=== PATIENT | female | born 1970 | race Caucasian/White ===

== ENCOUNTER 2019-04-01 13:17 | Outpatient (CLI) | payer OTHER, SELFPAY ==
--- NOTE | ~2019-04-01 | US_ITS ---
EXAMINATION: US thyroid DATE: 04/01/2019 15:09 INDICATION: Thyroid cancer. TECHNIQUE: Multiple ultrasound images of the thyroid were obtained. COMPARISON: Ultrasound 11/26/2018 FINDINGS: The right thyroid lobe is absent. The left thyroid lobe measures 5.0 x 1.8 x 1.8 cm. Left thyroid lo be is diffusely heterogeneous. Vascularity is increased. No discrete nodule. IMPRESSION: 1. Heterogeneous, hypervascular left thyroid lobe, likely chronic lymphocytic (Clay) thyroiditis . Because no discrete nodule was identified, no biopsy was performed. Reviewed, dictated and finalized at location A. ELECTRICIAN IMPRESSION: 1. Heterogeneous, hypervascular left thyroid lobe, likely chronic lymphocytic ( Clay) thyroiditis. Because no discrete nodule was identified, no biopsy wa s performed.
== END 2019-04-01 13:18 | disposition home or self-care (01) ==
LOC: ANHIMG 13:33
PROVIDERS: PCP Family Medicine
DX: C73 Malignant neoplasm of thyroid gland (principal)
CPT/HCPCS: 76536

== ENCOUNTER 2019-10-11 11:50 | Outpatient (CLI) | payer OTHER, SELFPAY ==
--- NOTE | ~2019-10-11 | MMUS_ITS ---
EXAMINATION: MM diagnostic esther BI w kane, US breast BI complete HISTORY: Bilateral mammographic asymmetries reported on 01/04/2019 bilateral digital screening mammog micheal. Probable benign bilateral breast findings including masses and cysts reported on 01/17/2019 bilateral diagnostic mammogram and bilateral complete breast ultrasound TECHNIQUE: 3-D tomosynthesis images of both breasts were performed and synthetic 2-D images were gene rated. CAD analysis was submitted and interpreted. High resolution bilateral complete breast ultrasou nd was performed. COMPARISON: 01/17/2019 bilateral diagnostic digital mammogram and bilateral complete breast ultrasoun d FINDINGS: MAMMOGRAPHIC FINDINGS: No suspicious mass or architectural distortion, malignant calcification, skin thickening or retractio n is evident. ULTRASOUND: Multiple bilateral breast cysts are noted, the largest on the right measuring up to 6 mm, the largest on the left measuring up to 1.2 cm. No suspicious mass or architectural distortion of either breast is evident. IMPRESSION: 1. No mammographic evidence of malignancy 2. Routine mammographic screening is recommended BI-RADS Category 2: Benign finding(s). Reviewed, dictated and finalized at location A. IMPRESSION: 1. No mammographic evidence of malignancy 2. Routine mammographic screening is recommended BI-RADS Category 2: Benign finding(s).
== END 2019-10-11 11:51 | disposition home or self-care (01) ==
LOC: ANHIMG 11:51
PROVIDERS: PCP Family Medicine; Visit Provider Family Medicine
DX: R92.8 Other abnormal and inconclusive findings on diagnostic imaging of breast (principal)
CPT/HCPCS: 76641; 77062; 77066; G0279

== ENCOUNTER 2020-04-02 10:22 | Outpatient (CLI) | payer OTHER, SELFPAY ==
--- NOTE | ~2020-04-02 | US_ITS ---
EXAMINATION: US thyroid DATE: 04/02/2020 11:13 INDICATION: Thyroid cancer. TECHNIQUE: Multiple ultrasound images of the thyroid were obtained. COMPARISON: Ultrasound 04/01/2019, 11/26/18 FINDINGS: The right thyroid lobe is absent. The left thyroid lobe measures 5.2 x 1.9 x 1.7 cm. The left thyroi d lobe is diffusely heterogeneous and hypoechoic. Vascularity is normal. No discrete nodule. IMPRESSION: 1. Chronic heterogeneity of the left thyroid lobe, likely chronic lymphocytic (Clay) thyroiditis . Reviewed, dictated and finalized at location A. WELL PUMPER IMPRESSION: 1. Chronic heterogeneity of the left thyroid lobe, likely chronic lymphocytic ( Clay) thyroiditis.
== END 2020-04-02 10:23 | disposition home or self-care (01) ==
PROVIDERS: PCP Family Medicine
DX: J38.00 Paralysis of vocal cords and larynx, unspecified (principal); R93.89 Abnormal findings on diagnostic imaging of other specified body structures
CPT/HCPCS: 76536

== ENCOUNTER 2020-10-22 15:46 | Outpatient (CLI) | payer OTHER, SELFPAY ==
--- NOTE | ~2020-10-22 | MM_ITS ---
EXAMINATION: MM screening esther BI w kane HISTORY: Screening TECHNIQUE: Craniocaudal and mediolateral oblique 3-D tomosynthesis images were obtained and synthetic 2-D images were generated. CAD analysis was submitted and interpreted. COMPARISON: Comparison to multiple prior studies sequentially, with oldest reviewed study dated 10/2015. BREAST PARENCHYMAL COMPOSITION: The breasts are heterogenously dense, which may obscure small masses FINDINGS: Stable benign-appearing bilateral breast masses. There is no evidence of suspicious mass, c alcification, or architectural distortion to suggest malignancy in either breast. There has been no s uspicious interval change. IMPRESSION: 1. No mammographic evidence of malignancy. 2. Recommend routine screening mammography in one year. BI-RADS Category 2: Benign finding(s). Reviewed, dictated and finalized at location A.
== END 2020-10-22 15:47 | disposition home or self-care (01) ==
LOC: ANHIMG 15:52
PROVIDERS: PCP Family Medicine; Visit Provider Family Medicine
DX: Z12.31 Encounter for screening mammogram for malignant neoplasm of breast (principal)
CPT/HCPCS: 77063; 77067

== ENCOUNTER 2021-11-26 08:16 | Outpatient (CLI) | payer OTHER, SELFPAY ==
--- NOTE | ~2021-11-26 | MM_ITS ---
EXAMINATION: MM screening [facility] BI w kane HISTORY: Screening mammogram TECHNIQUE: Craniocaudal and mediolateral oblique 3-D tomosynthesis images were obtained and synthetic 2-D images were generated. CAD analysis was submitted and interpreted. COMPARISON: 10/22/2020, 10/11/2019, 01/17/2019 BREAST PARENCHYMAL COMPOSITION: The breasts are heterogeneously dense, which may obscure small masses . FINDINGS: There is no suspicious mass, calcification, or architectural distortion to suggest malignan cy in either breast. There has been no suspicious interval change. IMPRESSION: 1. No mammographic evidence of malignancy. 2. Recommend routine screening mammography in one year. BI-RADS Category 1: Negative Reviewed, dictated and finalized at location A.
== END 2021-11-26 08:17 | disposition home or self-care (01) ==
PROVIDERS: PCP Family Medicine; Visit Provider Family Medicine
DX: Z12.31 Encounter for screening mammogram for malignant neoplasm of breast (principal)
CPT/HCPCS: 77063; 77067

== ENCOUNTER 2023-04-03 07:16 | Outpatient (CLI) | payer OTHER, SELFPAY ==
--- NOTE | ~2023-04-03 | MM_ITS ---
EXAMINATION: MM screening est[facility] BI w kane HISTORY: Screening mammogram TECHNIQUE: Craniocaudal and mediolateral oblique 3-D tomosynthesis images were obtained and synthetic 2-D images were generated. CAD analysis was submitted and interpreted. COMPARISON: 11/26/2021, 10/22/2020 bilateral screening mammogram examinations BREAST PARENCHYMAL COMPOSITION: The breasts are heterogeneously dense, which may obscure small masses . FINDINGS: There is no evidence of suspicious mass, calcification, or architectural distortion to sugg est malignancy in either breast. There has been no suspicious interval change. IMPRESSION: 1. No mammographic evidence of malignancy. 2. Recommend routine screening mammography in one year. BI-RADS Category 1: Negative Reviewed, dictated and finalized at location A. LY SUPPORT WORKER
== END 2023-04-03 07:17 | disposition home or self-care (01) ==
LOC: ANHIMG 07:22
PROVIDERS: PCP Family Medicine; Visit Provider Family Medicine
DX: Z12.31 Encounter for screening mammogram for malignant neoplasm of breast (principal)
CPT/HCPCS: 77063; 77067

== ENCOUNTER 2023-10-26 16:19 | Emergency (ER) | payer BC, SELFPAY ==
[2023-10-26] VITALS (10 sets, daily range): BP systolic 112–135; BP diastolic 86–93; PULSE 71–88; RESP 14–18; TEMP 36.3–36.6; O2SAT 96–100
--- NOTE | ~2023-10-26 | CT_ITS ---
EXAMINATION: CT brain wo con DATE: 10/26/2023 18:23 INDICATION: Dizziness TECHNIQUE: Computed tomography (CT) of the head was performed without intravenous contrast. Sagittal and coronal reconstructions were performed. The mA was adjusted according to patient size. Iterative reconstruction technique was employed. The dose-length product was 605.33 mGy-cm. COMPARISON: None FINDINGS: No acute intracranial hemorrhage, acute infarction or abnormal extra axial fluid collection. Ventricl es are normal and symmetric. No mass/mass effect. The orbits, paranasal sinuses and mastoid air cells are normal. IMPRESSION: 1. Normal for age brain. No acute intracranial process. Reviewed, dictated and finalized at location A.
--- NOTE | 2023-10-26 16:27 | ECG_ITS ---
Test Date: 2023-10-26 16:31:39 Measurements Intervals [place] Rate: 81 P: 69 VA: 175 QRS: 3 QRSD: 84 T: 73 QT: 383 QTc: 445 Interpretive Statements SINUS RHYTHM INCOMPLETE RIGHT BUNDLE BRANCH BLOCK DELAYED PRECORDIAL R/S TRANSITION LOW QRS VOLTAGE IN PRECORDIAL LEADS BORDERLINE T WAVE ABNORMALITY- HIGH LATERAL LEADS BASELINE ARTIFACT- I, III, AVR, AVL, AVF, V6 BORDERLINE ECG No previous ECG available for comparison Electronically Signed On 10-26-2023 17:47:53 CDT by Man Michael D.O.
--- NOTE | 2023-10-26 16:27 | ED.DIZZY ---
HPI - Dizziness General Chief Complaint: Dizziness <Alek Yee PA-C - Last Filed: 10/26/23 16:30> Stated Complaint: DIZZY, N/V <Alek Yee PA-C - Last Filed: 10/26/23 16:30> Time Seen by Provider: 10/26/23 16:27 <Alek Yee PA-C - Last Filed: 10/26/23 16:30> Focused HPI: This is a 53-year-old female with history of acquired hypothyroid, pre diabetes who presents to the ED for chief complaint of intermittent dizziness over the past several days. Reports associated nausea and a several episodes of vomiting. She reports that she was trying to read her Eileen in all the words responding. She has a spinning sensation that worsens when moving her head to the right or to the left. She states that the left does feel worse. she does state that the dizziness has periods where he gets better foot then will return with certain movements. This is never happened before. Denies chest pain, shortness of breath, cough, recent illness, fevers, chills, diarrhea or abdominal pain. GENERAL: Well-appearing, well-nourished, and in no acute distress. HEAD: Normocephalic, atraumatic. CHEST: Clear to auscultation. No respiratory distress. HEART: Regular rate and rhythm. NEURO: Alert and oriented x3. Patient screened in triage and initial orders placed. Additional care and disposition to be based upon diagnostic testing and treatment. <Alek Yee PA-C - Last Filed: 10/26/23 16:30> Related Data Home Medications: Home Medications Medication Instructions Recorded Confirmed calcium carbonate (Calcium 600) 600 mg PO DAILY 12/27/18 09/29/22 biotin 10 mg tablet 10 mg PO DAILY 07/05/21 09/29/22 <LOGAN Lima Last Filed: 10/26/23 16:30> Allergies/Adverse Reactions: Allergies Allergy/AdvReac Type Severity Reaction Status Date / Time No Known Allergies Allergy Verified 10/26/23 16:52 <LOGAN Lima Last Filed: 10/26/23 16:30> Review of Systems Review of Systems: CONSTITUTIONAL: Denies fever EYES: Denies visual changes GASTROINTESTINAL: Reports nausea, vomiting MUSCULOSKELETAL: Reports myalgia. NEUROLOGIC: Denies numbness, or weakness. 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, unspecified Prediabetes Prehypertension <Alek Yee PA-C - Last Filed: 10/26/23 16:30> Surgical History Surgical History: Surgical History H/O section (~2001) History of thyroidectomy (~12/2018) History of tubal ligation (~2015) <Alek Yee PA-C - Last Filed: 10/26/23 16:30> Family History Family History: Family History Father Malignant neoplasm of prostate Grandparent Cerebrovascular accident Breast cancer Mother Diabetes mellitus ALS (amyotrophic lateral sclerosis) Grandparent Lung disease <Alek Yee PA-C - Last Filed: 10/26/23 16:30> Social History Social History: Social History Smoking status: Never smoker Tobacco type: cigarettes Smoking end date: 02/23/95 Alcohol intake: current Drinks per week: 4 Substance use: never Substance use type: does not use Lack of Transportation: No Lack of Food: Never True Current Housing: I Have Housing Concerned About Future Housing: No Difficulty Paying Gas/Electric Bills: No Difficulty P
[2023-10-26 16:40] LABS: Basophils Absolute Auto 0.1 K/mm3 (0.0-0.1); Basophils Percent Auto 1.4 % (0.2-1.2); Eosinophils Absolute Auto 0.1 K/mm3 (0-0.3); Eosinophils Percent Auto 1.9 % (0-4.4); Hematocrit 40.5 % (37.0-47.0); Hemoglobin 13.5 g/dL (12.0-15.0); Immature Granulocyte Absolute 0.03 K/mm3 (0.00-0.031); Immature Granulocyte Percent A 0.4 % (0-0.5); Lymphocytes Absolute Auto 2.47 K/mm3 (0.9-3.2); Lymphocytes Percent Auto 33.6 % (18.3-44.2); Mean Corpuscular HGB Conc 33.3 g/dl (32-36); Mean Corpuscular Hemoglobin 30.3 pg (26-34); Mean Corpuscular Volume 90.8 fl (80-100); Mean Platelet Volume 11.2 fl (7.4-10.4); Monocytes Absolute Auto 0.5 K/mm3 (0.1-0.6); Monocytes Percent Auto 6.1 % (2.6-8.5); Neutrophils Absolute Auto 4.2 K/mm3 (1.3-6.7); Neutrophils Percent Auto 56.6 % (45.5-73.1); Platelet Count Result 284 k/mm3 (150-375); Red Blood Count 4.46 M/mm3 (4.2-5.4); Red Cell Distribution Width 13.2 % (11.5-14.5); White Blood Count 7.4 K/mm3 (4.5-10.0)
[2023-10-26 16:49] LABS: Alanine Aminotransferase 25 U/L (6-35); Albumin Level 4.7 g/dL (3.5-5.1); Alkaline Phosphatase 81 U/L (38-126); Anion Gap 13 mmol/L (4-12); Aspartate Amino Transferase 19 U/L (14-36); Bilirubin,Total 0.5 mg/dL (0.2-1.3); Blood Urea Nitrogen 17 mg/dL (7-17); Calcium 9.1 mg/dL (8.4-10.2); Carbon Dioxide 27 mmol/L (22-30); Chloride 98 mmol/L (98-107); Estimated Glomerular Filt Rate > 60; Glucose 100 mg/dL (65-110); Potassium 3.9 mmol/L (3.4-5.0); Sodium 138 mmol/L (137-145)
[2023-10-26 16:49] LABS: Bacteria Urine None Seen /hpf; Non Pathogenic Casts 0-2; RBC Urine 0-2 /hpf (0-2); Squamous Epithelial Cell Urine None Seen /hpf (Few); WBC Urine 0-5 /hpf (0-3)
[2023-10-26 16:50] LABS: Prothrombin Time 13.6 Seconds (11.1-14.7)
[2023-10-26 16:56] LABS: Add Urine Microscopic? YES; Appearance Urine Clear (Clear); Color Urine Yellow (Yellow); Glucose Urine UA Negative (Negative); Ketones Urine Trace mg/dL (Negative); Protein Urine Negative (Negative); pH Urine 5.5 (5.0-9.0)
[2023-10-26 16:57] LABS: Bilirubin Urine 1+ (Negative); Blood Urine Negative (Negative); Leukocyte Esterase Ur Negative LEU/UL (Negative); Nitrate Urine Negative (Negative); Urobilinogen Urine 0.2 mg/dL (<2.0)
[2023-10-26] MEDS: diphenhydrAMINE HCl INJ 50 MG/ML VIAL 25 MG IV PUSH (17:05)
[2023-10-26] MEDS: METOCLOPRAMIDE HCL INJ 10 MG/2 ML VIAL IV PUSH (17:06)
[2023-10-26] MEDS: MECLIZINE HCL 25 MG TABLET PO (17:22)
[2023-10-26] MEDS: SODIUM CHLORIDE 0.9% IV 1,000 ML 999 ML IV CONT (17:23)
== END 2023-10-26 21:45 | disposition home or self-care (01) ==
PROVIDERS: Physician Assistant; Emergency Provider Physician Assistant; PCP Family Medicine
DX: R42 Dizziness and giddiness (principal); E89.0 Postprocedural hypothyroidism; E06.3 Autoimmune thyroiditis; E66.9 Obesity, unspecified; K75.81 Nonalcoholic steatohepatitis (NASH); R73.03 Prediabetes; Z87.19 Personal history of other diseases of the digestive system; Z85.850 Personal history of malignant neoplasm of thyroid; Z87.891 Personal history of nicotine dependence; Z79.85 Long-term (current) use of injectable non-insulin antidiabetic drugs; Z79.84 Long term (current) use of oral hypoglycemic drugs; Z79.899 Other long term (current) drug therapy; I45.10 Unspecified right bundle-branch block; R94.31 Abnormal electrocardiogram [ECG] [EKG]
CPT/HCPCS: 36415; 70450; 80053; 81001; 85025; 85610; 93005; 96361; 96374; 96375; 99284; A9270; J1200; J2765; J7030

== ENCOUNTER 2024-05-27 07:49 | Outpatient (CLI) | payer BC, SELFPAY ==
--- NOTE | ~2024-05-27 | MM_ITS ---
EXAMINATION: MM screening [facility] BI w kane HISTORY: Screening TECHNIQUE: Craniocaudal and mediolateral oblique 3-D tomosynthesis images were obtained and synthetic 2-D images were generated. CAD analysis was submitted and interpreted. COMPARISON: Comparison to multiple prior studies sequentially, with oldest reviewed study dated 12/24. BREAST PARENCHYMAL COMPOSITION: Dense: The breasts are heterogeneously dense, which may obscure small masses FINDINGS: There are multiple bilateral breast asymmetries and masses involving both breasts which are stable dating back to 01/04/2019, benign. There is no evidence of suspicious mass, calcification, or architectural distortion to suggest malignancy in either breast. There has been no suspicious interv al change. IMPRESSION: 1. No mammographic evidence of malignancy. 2. Recommend routine screening mammography in one year. BI-RADS Category 2: Benign finding(s). Reviewed, dictated and finalized at location A.
--- OUTSIDE RECORDS SUMMARY | 2024-05-27 07:53 | XMS_ITS | Clinical Summary ---
Author Organization [facility] Address [address] [place] [address] Care Team Providers Care Fire Extinguisher Mechanic Name Role Phone Sonny Thomas MD Primary Care Provider [phone] Source Comments [facility],non-owned Affiliates and Associated Physician Practices is amultiple site organization consisting of ambulatory clinics and hospital sitesin [place], [place], [place] and [place]. This disclosure is being madepursuant to the Care Everywhere program and may not contain all information available regarding this patient. Last updated 17.[facility] Allergies No known active allergies Medications * Be aware that medications may not be up to date on this document. Alwaysverify current medications with the patient. Medication Sig Dispensed Refills Start Date End Date Status metFORMIN CR 24hr modified (GLUMETZA) 500 MG (MOD) tablet Take 500 mg by mouth 2 times daily Active acyclovir (ZOVIRAX) 400 MG tablet Take 1 (one) tablet by mouth once daily Active Calcium Carb-Cholecalcifer ol 500-600 MG-UNIT Take 1 tablet by mouth once daily Active levothyroxine (SYNTHROID) 100 MCG tablet Take 1 (one) tablet by mouth once daily 03/30/2020 Active Ozempic, 0.25 or 0.5 MG/DOSE, 2 MG/1.5ML pen Inject 0.25 (one-quarter) mg subcutaneously as directed 05/12/2022 Active spironolactone (Aldactone) 50 MG tablet Take 1 (one) tablet by mouth once daily 03/27/2022 Active Active Problems Problem Noted Date Diagnosed Date Thyroid cancer 02/02/2019 Immunizations Name Administration Dates Next Due INFLUENZA VACCINE 11/17/2019 INFLUENZA VACCINE, QUADR. (F LUZONE; FLULAVAL; FLUARIX; AFLURIA QUADRIVALENT; 6MO+), 0.5 ML (IIV4) 01/17/2022,12/28/2020 TDAP, HISTORIC VACCINE 05/10/2020 Social History Tobacco Use Types Packs/Day Years Used Date Smoking Tobacco: Former Cigarettes Q uit: 1995 Smokeless Tobacco: Never Tobacco Cessation:Counseling Given: Not Answered Alcohol Use Standard Drinks/Week Comments Yes 0 (1 standard drink = 0.6 oz pur e alcohol) Sex and Gender Information Value Date Recorded Sex Assigned at Not on file Gender Identity Not on file Sexual Orientation Not on file Last Filed Vital Signs Vital Sign Reading Time Taken Comments Blood Pressure 104/73 06/17/2023 8:36 AM CDT Pulse 79 06/13/2022 8:46 AM CDT Temperature 36.9 C (98.5 F) 06/07/2021 2:22 PM CDT Respiratory Rate 14 06/17/2023 8:36 AM CDT Oxygen Saturation 100% 06/17/2023 8:36 AM CDT Inhaled Oxygen Concentration - - Weight 95.6 kg (210 lb 12.8 oz) 06/13/2022 8:46 AM CDT Height 170.2 cm (5' 7 ) 06/17/2023 8:36 AM CDT Body Mass Index 33.02 06/13/2022 8:46 AM CDT Plan of Treatment Upcoming Encounters Date Type Department Care Team (Late st Contact Info) Description 06/22/2024 8:00 AM CDT Appointment [facility] [address] [place] [address] Alek Menard MD [address] [place] [phone] 06/22/2024 9:00 AM CDT Office Visit [facility] - ENT [address] [place] [phone] Alek Menard MD [address] [place] [phone] Health Maintenance Due Date Last Done Comments COLOGUARD (AGES 45-75) - COLON CA SCREENING 1970 COLON MONITORING 1970 COLONOSCOPY - COLON CA SCREENING 1970 CT COLONOGRAPHY - COLON CA SCREENING 1970 Colorectal Cancer Screening 1970 FIT - COLON CA SCREENING 1970 FLEX SIG - COLON CA SCREENING 1970 LIPID TESTING 1970 MAMMOGRAM 1970 PAP SMEAR 1970 HIV SCREENING 1985 HEPATITIS C SCREENING 07/01/1988 HEPATITIS B VACCINE (1 of 3 - 19+ 3-dose series) 1989 PNEUMOCOCCAL VACCINE 50+ (1 of 1 - PCV) 2020 ZOSTER VACCINE (1 of 2) 2020 COVID-19 VACCINE (5 - season) 2023 01/17/2022, 06/15/2021, 12/28/2020, Additional history exists INFLUENZA VACCINE (#1) 2023 , 12/28/2020, 11/17/2019 DEPRESSION SCREENING 02/24/2024 DTAP/TDAP/TD VACCINES (2 - Td or Tdap) 05/10/2030 05/10/2020 HIB VACCINE Aged Out No longer eligi ble based on patient's age to complete this topic HPV VACCINE Aged Out No longer eligi ble based on patient's age to complete this topic MENINGOCOCCAL (Group B) VACCINE SHARED DECISION-MAKING Aged Out No longer eligible based on patient's age to complete this topic MENINGOCOCCAL GROUPS A/C/Y/W VACCINE Aged Out No longer eligible based on patient's age to complete this topic Care Teams Fire Extinguisher Mechanic Relationship Specialty Start Date End Date Sonny Thomas MD [address] [place] [phone] PCP - General 02/02/19
== END 2024-05-27 07:50 | disposition home or self-care (01) ==
LOC: ANHIMG 07:51
PROVIDERS: PCP Family Medicine; Visit Provider Family Medicine
DX: Z12.31 Encounter for screening mammogram for malignant neoplasm of breast (principal)
CPT/HCPCS: 77063; 77067